=== PATIENT | male | born 1955 | race Caucasian/White ===

== ENCOUNTER 2017-12-08 14:29 | Emergency (ER) | payer MEDICARE, OTHER ==
[~2017-12-08] VITALS: Ht 188 cm; Wt 90.0 kg
[2017-12-08] MEDS ORDERED: GADODIAMIDE PF 287 MG/ML 5 ML VIAL (for RAD MRI) IVCONTRAST ONE (14:30)
[2017-12-08 14:35] VITALS: BP 125/75; PULSE 74; RESP 16; TEMP 97.3; O2SAT 97
[2017-12-08 15:31] VITALS: BP 125/77; PULSE 61; RESP 18; O2SAT 99
[2017-12-08] MEDS ORDERED: CLON2TAB PO (15:34)
[2017-12-08] MEDS ORDERED: NAPR250T4 PO (15:34)
[2017-12-08] MEDS ORDERED: METOCLOPRAMIDE INJ 10 MG in SODIUM CHLORIDE 0.9% INJ 50 ML IV ONE (15:45)
[2017-12-08] MEDS ORDERED: MECLIZINE HCL 25 MG TAB PO ONE (15:45)
[2017-12-08] MEDS ORDERED: SODIUM CHLORID 0.9% 500 ML INJ 500 ML IV ONE (15:45)
[2017-12-08 16:14] LABS: AUTOMATED NEUTROPHIL # 4.7 TH/MM3 (1.8-7.7); BASOPHIL # 0.1 TH/MM3 (0-0.2); BASOPHIL % 0.8 % (0.0-2.0); EOSINOPHIL # 0.2 TH/MM3 (0-0.4); EOSINOPHIL % 3.1 % (0.0-4.0); HEMATOCRIT 39.3 % (39.0-51.0); HEMOGLOBIN 13.1 GM/DL (13.0-17.0); LYMPH % 25.1 % (9.0-44.0); LYMPHOCYTE # 1.9 TH/MM3 (1.0-4.8); MEAN CELL VOLUME 89.4 FL (80.0-100.0); MEAN CORPUSCULAR HEMOGLOBIN 29.7 PG (27.0-34.0); MEAN CORPUSCULAR HGB CONC 33.2 % (32.0-36.0); MEAN PLATELET VOLUME 9.2 FL (7.0-11.0); MONO % 8.3 % (0.0-8.0); MONOCYTE # 0.6 TH/MM3 (0-0.9); NEUT % 62.7 % (16.0-70.0); PLATELET COUNT 258 TH/MM3 (150-450); RED BLOOD COUNT 4.39 MIL/MM3 (4.50-5.90); WHITE BLOOD COUNT 7.5 TH/MM3 (4.0-11.0)
[2017-12-08 16:37] LABS: ALBUMIN 3.6 GM/DL (3.4-5.0); AST (GOT) 17 U/L (15-37); BICARBONATE 22.9 MEQ/L (21.0-32.0); BLOOD UREA NITROGEN 16 MG/DL (7-18); CALCIUM 8.8 MG/DL (8.5-10.1); CHLORIDE 107 MEQ/L (98-107); GLOMERULAR FILTRATION RATE 75 ML/MIN (>89); GLUCOSE,RANDOM 154 MG/DL (74-106); SODIUM (NA) 139 MEQ/L (136-145)
[2017-12-08 16:39] LABS: ALT (GPT) 17 U/L (12-78)
[2017-12-08 16:42] LABS: ALKALINE PHOSPHATASE 48 U/L (45-117); TOTAL BILIRUBIN ADULT 0.9 MG/DL (0.2-1.0); TOTAL PROTEIN 6.5 GM/DL (6.4-8.2); TROPONIN I LESS THAN 0.02 NG/ML (0.02-0.05)
--- NOTE | 2017-12-08 17:14 | RADRPT ---
EXAM DATE: 12/08/2017 4:43 PM EDT AGE/SEX: 62 years / Male INDICATIONS: Dizziness, weakness.Known c/s fluid leak CLINICAL DATA: This is the patient's initial encounter. Patient reports that signs and symptoms have been present for 1 day and indicates a pain score of 9/10. MEDICAL/SURGICAL HISTORY: Cerebrovascular disease. Traumatic brain injury. . Pituitary gland remov al RADIATION DOSE: 38.20 CTDI (mGy) COMPARISON: No prior exams available for comparison. TECHNIQUE: CT of the head without contrast. Using automated exposure control and adjustment of the mA and/or kV according to patient size, radiation dose was kept as low as reasonably achievable to ob tain optimal diagnostic quality images. DICOM format image data is available electronically for revi ew and comparison. FINDINGS: Cerebrum: Mild diffuse cerebral atrophy. The ventricles are normal for degree of atrophy. No evidenc e of midline shift, mass lesion, hemorrhage or acute infarction. No extraaxial fluid collections are seen. Posterior Fossa: The cerebellum and brainstem are intact. The 4th ventricle is midline. The cerebe llopontine angle is unremarkable. Extracranial: The visualized portion of the orbits is intact. Skull: The calvaria is intact. No evidence of skull fracture. CONCLUSION: 1. No acute intracranial abnormality. Electronically signed by: Zion Deluca MD 12/08/2017 5:13 PM EDT
[2017-12-08 17:19] VITALS: BP 111/77; PULSE 60; RESP 18; TEMP 97.8; O2SAT 99
--- NOTE | 2017-12-08 17:40 | PD ---
HPI Chief Complaint: Medical Clearance Time Seen by Provider: 15:19 Travel History International Travel<30 days: No Contact w/Intl Traveler<30days: No Traveled to known affect area: No History of Present Illness HPI Patient is a 62 year old male who comes in complaining of dizziness, fluid coming from his nose, and ringing in his ears. Patient has history of pituitary tumor removal in 2002 and TBI in 2016. He says he has been "leaking" this fluid from his nose since that time. He also reports dizziness since the injury as well. He says that the ringing in his ears is new. He says he has been to 5 different hospitals regarding these symptoms and no one has been able to tell him what was causing it or fix it. He says the dizziness comes on when he stands up and goes away when he lays down. He denies headache, chest pain or SOB. Severity is mild to moderate. PFSH Past Medical History Hx Anticoagulant Therapy: No Arthritis: Yes Cerebrovascular Accident: Yes Diminished Hearing: No Neurologic: Yes (TBI 2016. ) Migraines: Yes Tetanus Vaccination: Unknown Influenza Vaccination: No Past Surgical History Other Surgery: Yes (pituitary gland removal) Social History Alcohol Use: Yes (sometimes a beer) Tobacco Use: Yes Substance Use: No Allergies-Medications (Allergen,Severity, Reaction): Coded Allergies: codeine (Verified Allergy, Intermediate, Nausea/Vomiting, 12/08/17) Reported Meds & Prescriptions Reported Meds & Active Scripts Active Reported Naproxen 250 Mg Tab 250 Mg PO BID Clonazepam 2 Mg Tab 2 Mg PO TID Review of Systems Except as stated in HPI: all other systems reviewed are Neg General / Constitutional: No: Fever, Chills HENT: Positive: Vertigo, No: Headaches Cardiovascular: No: Chest Pain or Discomfort Respiratory: No: Shortness of Breath Gastrointestinal: No: Nausea, Vomiting Musculoskeletal: No: Myalgias Skin: No Rash, No Change in Pigmentation Neurologic: Positive: Dizziness, No: Weakness, Syncope Physical Exam Narrative GENERAL: Awake and alert, in no acute distress. SKIN: Focused skin assessment warm/dry. HEAD: Atraumatic. Normocephalic. EYES: Pupils equal and round. No scleral icterus. ENT: Mucous membranes pink and moist. NECK: Trachea midline. No JVD. CARDIOVASCULAR: Regular rate and rhythm. No murmur appreciated. RESPIRATORY: No accessory muscle use. Clear to auscultation. Breath sounds equal bilaterally. GASTROINTESTINAL: Abdomen soft, non-tender, nondistended. MUSCULOSKELETAL: No obvious deformities. No clubbing. No cyanosis. No edema. NEUROLOGICAL: Awake and alert. No obvious cranial nerve deficits. Motor grossly within normal limits. Normal speech. PSYCHIATRIC: Appropriate mood and affect; insight and judgment normal. Data Data Last Documented VS Vital Signs Date Time Temp Pulse Resp B/P (MAP) Pulse Ox O2 Delivery O2 Flow Rate FiO2 12/08/17 17:19 97.8 60 18 111/77 (88) 99 Room Air Orders Orders Ct Brain W/O Iv Contrast(Rout) (12/08/17 ) Iv Access Insert/Monitor (12/08/17 15:38) Complete Blood Count With Diff (12/08/17 15:38) Comprehensive Metabolic Panel (12/08/17 15:38) Electrocardiogram (12/08/17 ) Troponin I (12/08/17 15:38) Meclizine (Antivert) (12/08/17 15:45) Sodium Chlorid 0.9% 500 Ml Inj (Ns 500 M (12/08/17 15:45) Metoclopramide Inj (Reglan Inj) (12/08/17 15:45) Mri Brain W&W/O Contrast (12/08/17 ) Gadodiamide Pf Inj (Omniscan Pf Inj) (12/08/17 14:30) Ed Discharge Order (12/08/17 19:27) Radiology Film Requests (12/08/17 ) Labs Laboratory Tests Test 12/08/17 15:45 White Blood Count 7.5 TH/MM3 Red Blood Count 4.39 MIL/MM3 Hemoglobin 13.1 GM/DL Hematocrit 39.3 % Mean Corpuscular Volume 89.4 FL Mean Corpuscular Hemoglobin 29.7 PG Mean Corpuscular Hemoglobin Concent 33.2 % Red Cell Distribution Width 16.0 % Platelet Count 258 TH/MM3 Mean Platelet Volume 9.2 FL Neutrophils (%) (Auto) 62.7 % Lymphocytes (%) (Auto) 25.1 % Monocytes (%) (Auto) 8.3 % Eosinophils (%) (Auto) 3.1 % Basophils (%) (Auto) 0.8 % Neutrophils # (Auto) 4.7 TH/MM3 Lymphocytes # (Auto) 1.9 TH/MM3 Monocytes # (Auto) 0.6 TH/MM3 Eosinophils # (Auto) 0.2 TH/MM3 Basophils # (Auto) 0.1 TH/MM3 CBC Comment DIFF FINAL Differential Comment Blood Urea Nitrogen 16 MG/DL Creatinine 1.00 MG/DL Random Glucose 154 MG/DL Total Protein 6.5 GM/DL Albumin 3.6 GM/DL Calcium Level 8.8 MG/DL Alkaline Phosphatase 48 U/L Aspartate Amino Transf (AST/SGOT) 17 U/L Alanine Aminotransferase (ALT/SGPT) 17 U/L Total Bilirubin 0.9 MG/DL Sodium Level 139 MEQ/L Potassium Level 3.7 MEQ/L Chloride Level 107 MEQ/L Carbon Dioxide Level 22.9 MEQ/L Anion Gap 9 MEQ/L Estimat Glomerular Filtration Rate 75 ML/MIN Troponin I LESS THAN 0.02 NG/ML MDM Medical Decision Making Medical Screen Exam Complete: Yes Emergency Medical Condition: Yes Medical Record Reviewed: Yes Interpretation(s) ECG shows sinus bradycardia at a rate of 58, no ST elevation or depression, normal intervals Differential Diagnosis vertigo vs dehydration vs intracranial pathology Narrative Course Patient is a 62 year old male who comes in complaining of fluid leaking from his nose, dizziness, ringing in his ears. Exam shows no neurologic abnormalities. IV established, labs sent. Labs show no acute abnormalities. CT head show no acute abnormalities. MRI brain ordered. Given Meclizine. Attempt made to obtain records from his primary care doctor, as per patient, "she has all of my test results." However, when we spoke to the office, she says she only has an ECG from him. Signed out to Dr. Chavez to follow up MRI and disposition the patient. Diagnosis Primary Impression: Misty Hidalgo MD Dec 08, 2017 17:40
--- NOTE | 2017-12-08 19:20 | RADRPT ---
EXAM DATE: 12/08/2017 7:11 PM EDT AGE/SEX: 62 years / Male INDICATIONS: Dizziness. CSF leaking from nostril, ringing in ears, and nausea. CLINICAL DATA: This is the patient's initial encounter. Patient reports that signs and symptoms have been present for 1 day and indicates a pain score of 2/10. MEDICAL/SURGICAL HISTORY: . Pituitary tumor. Fusion, cervical. Pituitary tumor. Antroscopic s urgery on left knee. Arm repair. COMPARISON: CT brain 12/08/2017. TECHNIQUE: Multiplanar, multisequence examination of the brain was performed without and with 18 ml O mniscan (gadodiamide) contrast as a single exam dose. FINDINGS: Cerebrum: The ventricles are normal for age. No evidence of midline shift, mass lesion, hemorrhage or acute infarction. No extraaxial fluid collections are seen. Postsurgical changes seen involving t he floor of the sella turcica and sphenoid sinus. No pituitary mass observed. The pituitary gland its elf is poorly seen. White Matter: No significant signal abnormalities are seen in the white matter. Posterior Fossa: The cerebellum and brainstem are intact. The 4th ventricle is midline. The cerebel lopontine angle is unremarkable. The cerebellar tonsils are normal in position. Diffusion Imaging: No focal areas of restricted diffusion are seen. No evidence of acute infarction . Extracranial: The visualized portions of the orbits and paranasal sinuses are unremarkable. Post Contrast: No abnormal areas of parenchymal or dural enhancement. No evidence of blood-brain ba rrier breakdown. CONCLUSION: 1. Postsurgical changes involving the sella turcica and sphenoid sinus with poor visualization of th e pituitary gland. No pituitary or sella turcica mass is currently seen. 2. No acute intracranial abnormality. Electronically signed by: Sung Mendenhall MD 12/08/2017 7:19 PM EDT
--- NOTE | 2017-12-08 19:27 | PD ---
Physical Exam Narrative GENERAL: SKIN: Warm and dry. HEAD: Atraumatic. Normocephalic. EYES: Pupils equal and round. No scleral icterus. No injection or drainage. ENT: No nasal bleeding noted. Mucous membranes pink and moist. NECK: Trachea midline. No JVD. CARDIOVASCULAR: Regular rate and rhythm. RESPIRATORY: No accessory muscle use. Clear to auscultation. Breath sounds equal bilaterally. GASTROINTESTINAL: Abdomen soft, non-tender, nondistended. MUSCULOSKELETAL: Extremities without clubbing, cyanosis, or edema. No obvious deformities. NEUROLOGICAL: Awake and alert. No obvious cranial nerve deficits. Motor grossly within normal limits. Five out of 5 muscle strength in the arms and legs. Normal speech. PSYCHIATRIC: Appropriate mood and affect; insight and judgment normal. Data Data Last Documented VS Vital Signs Date Time Temp Pulse Resp B/P (MAP) Pulse Ox O2 Delivery O2 Flow Rate FiO2 12/08/17 17:19 97.8 60 18 111/77 (88) 99 Room Air Orders Orders Ct Brain W/O Iv Contrast(Rout) (12/08/17 ) Iv Access Insert/Monitor (12/08/17 15:38) Complete Blood Count With Diff (12/08/17 15:38) Comprehensive Metabolic Panel (12/08/17 15:38) Electrocardiogram (12/08/17 ) Troponin I (12/08/17 15:38) Meclizine (Antivert) (12/08/17 15:45) Sodium Chlorid 0.9% 500 Ml Inj (Ns 500 M (12/08/17 15:45) Metoclopramide Inj (Reglan Inj) (12/08/17 15:45) Mri Brain W&W/O Contrast (12/08/17 ) Gadodiamide Pf Inj (Omniscan Pf Inj) (12/08/17 14:30) Labs Laboratory Tests Test 12/08/17 15:45 White Blood Count 7.5 TH/MM3 Red Blood Count 4.39 MIL/MM3 Hemoglobin 13.1 GM/DL Hematocrit 39.3 % Mean Corpuscular Volume 89.4 FL Mean Corpuscular Hemoglobin 29.7 PG Mean Corpuscular Hemoglobin Concent 33.2 % Red Cell Distribution Width 16.0 % Platelet Count 258 TH/MM3 Mean Platelet Volume 9.2 FL Neutrophils (%) (Auto) 62.7 % Lymphocytes (%) (Auto) 25.1 % Monocytes (%) (Auto) 8.3 % Eosinophils (%) (Auto) 3.1 % Basophils (%) (Auto) 0.8 % Neutrophils # (Auto) 4.7 TH/MM3 Lymphocytes # (Auto) 1.9 TH/MM3 Monocytes # (Auto) 0.6 TH/MM3 Eosinophils # (Auto) 0.2 TH/MM3 Basophils # (Auto) 0.1 TH/MM3 CBC Comment DIFF FINAL Differential Comment Blood Urea Nitrogen 16 MG/DL Creatinine 1.00 MG/DL Random Glucose 154 MG/DL Total Protein 6.5 GM/DL Albumin 3.6 GM/DL Calcium Level 8.8 MG/DL Alkaline Phosphatase 48 U/L Aspartate Amino Transf (AST/SGOT) 17 U/L Alanine Aminotransferase (ALT/SGPT) 17 U/L Total Bilirubin 0.9 MG/DL Sodium Level 139 MEQ/L Potassium Level 3.7 MEQ/L Chloride Level 107 MEQ/L Carbon Dioxide Level 22.9 MEQ/L Anion Gap 9 MEQ/L Estimat Glomerular Filtration Rate 75 ML/MIN Troponin I LESS THAN 0.02 NG/ML [facility] Medical Record Reviewed: Yes Supervised Visit with GATITO: No Narrative Course CBC shows no leukocytosis, no anemia, normal platelet count and no left shift Electrolytes are all within normal limits, normal kidney liver functions. first set of cardiac enzymes negative CT read by radiologist as no acute intracranial abnormality Brain MRI read by radiologist as no acute intracranial abnormality, furthermore some postsurgical changes involving the sella turcica and sphenoid sinus with poor visualization of the pituitary gland. No pituitary or sella turcica mass is seen Diagnosis Primary Impression: medical clearance Referrals: Hi Aragon MD for further evaluation of your persistent runny nose Patient Instructions: General Instructions Disposition: 01 DISCHARGE HOME Condition: Stable Zach Chavez MD Dec 08, 2017 19:27
--- NOTE | 2017-12-09 09:18 | EKG ---
Date Performed: 12/08/2017 Time Performed: 15:59:25 PTAGE: 62 years EKG: SINUS BRADYCARDIA BORDERLINE LEFT AXIS DEVIATION POSSIBLE RIGHT VENTRICULAR CONDUCTION SAMMY Y BORDERLINE ECG NO PREVIOUS TRACING DOCTOR: Mekhi Wayne Interpretating Date/Time 12/09/2017 09:14:23
== END 2017-12-08 20:57 | disposition home or self-care (01) ==
LOC: NEPC 14:29
DX: R42 Dizziness and giddiness (principal); R09.89 Other specified symptoms and signs involving the circulatory and respiratory systems; R00.1 Bradycardia, unspecified; M19.90 Unspecified osteoarthritis, unspecified site; Z86.73 Personal history of transient ischemic attack (TIA), and cerebral infarction without residual deficits; Z87.820 Personal history of traumatic brain injury; Z88.5 Allergy status to narcotic agent; Z72.0 Tobacco use
CPT/HCPCS: 70450; 70553; 80053; 84484; 85025; 93005; 96361; 96365; 99285; A9579; J2765; J7040